=== PATIENT | male | born 1995 | race Two or more races ===

== ENCOUNTER 2020-03-10 18:37 | Emergency (ER) | payer OTHER ==
[~2020-03-10] VITALS: Ht 160 cm; Wt 78.9 kg
[2020-03-10 20:18] VITALS: BP 118/58
[2020-03-10] MEDS ORDERED: ACETAMINOPHEN/CODEINE#3 (300/30mg) TAB PO ONE (20:45)
== END 2020-03-10 21:03 | disposition home or self-care (01) ==
LOC: ER 18:37
DX: S22.42XA Multiple fractures of ribs, left side, initial encounter for closed fracture (principal); V86.59XA Driver of other special all-terrain or other off-road motor vehicle injured in nontraffic accident, initial encounter; Y93.55 Activity, bike riding; Y92.410 Unspecified street and highway as the place of occurrence of the external cause; Y99.8 Other external cause status
CPT/HCPCS: 71101